=== PATIENT | female | born 1990 | race African-American/Black ===

== ENCOUNTER 2020-03-19 12:13 | Emergency (ER) | payer SELFPAY ==
[~2020-03-19] VITALS: Ht 157.5 cm; Wt 75.5 kg
[2020-03-19 12:16] VITALS: Ht 157.5 cm; Wt 75.5 kg
[2020-03-19 13:47] LABS: HCG URINE POSITIVE (NEGATIVE)
[2020-03-19 13:58] LABS: BACTERIA FEW /hpf (NEGATIVE); BILIRUBIN NEGATIVE (NEGATIVE); EPITHELIAL CELLS 0-5 /hpf (0-5); GLUCOSE NEGATIVE (NEGATIVE); KETONE NEGATIVE (NEGATIVE); NITRITE NEGATIVE (NEGATIVE); RED CELLS - URINE RARE /hpf (0-5); SPECIFIC GRAVITY 1.005 (1.005-1.020); UROBILINOGEN NORMAL (NORMAL); WHITE CELLS - URINE OCC /hpf (NEGATIVE)
[2020-03-19 14:30] VITALS: BP 128/72
== END 2020-03-19 14:31 | disposition home or self-care (01) ==
LOC: D.ER 12:13
PROVIDERS: Family Medicine
DX: Z64.0 Problems related to unwanted pregnancy (principal)